=== PATIENT | female | born 1965 | race Caucasian/White ===

== ENCOUNTER 2018-11-24 10:16 | Emergency (ER) | payer OTHER ==
[2018-11-24 10:21] VITALS: BP 135/83; PULSE 83; TEMP 98; BMI 30.7
[2018-11-24] MEDS ORDERED: BACITRACIN 15 GM TUBE TOPICAL OINTMENT ONE (11:25)
--- NOTE | 2018-11-24 11:32 | PDOC ---
History of Present Illness - General Chief Complaint: Injury Stated Complaint: FALL / SKIN TEAR Time Seen by Provider: 11/24/18 10:26 History Source: Patient Exam Limitations: No Limitations Past History - Travel Traveled outside of the country in the last 30 days: No Close contact w/someone who was outside of country & ill: No - Past Medical History Allergies/Adverse Reactions: Allergies Allergy/AdvReac Type Severity Reaction Status Date / Time No Known Allergies Allergy Verified 11/24/18 10:21 Home Medications: Ambulatory Orders Mupirocin Ointment [Bactroban 2% Ointment -] 1 applic TP BID #1 tube 11/24/18 COPD: No Dementia: (PRE-DIABETIC) HTN: Yes - Psycho Social/Smoking Cessation Hx Smoking History: Never smoked Hx Alcohol Use: No Drug/Substance Use Hx: No Review of Systems - Review of Systems Able to Perform ROS?: Yes Comments:: 11/24/18 11:35 CONSTITUTIONAL: Absent: fever, chills, diaphoresis, generalized weakness, malaise, loss of appetite MUSCULOSKELETAL: Absent: myalgia, arthralgia, joint swelling SKIN: Present: Abrasion to left knee. Absent: rash, itching, pallor NEUROLOGIC: Absent: headache, focal weakness or paresthesias, dizziness, unsteady gait, seizure, mental status changes, bladder or bowel incontinence PSYCHIATRIC: Absent: anxiety, depression, suicidal or homicidal ideation, hallucinations. Is the patient limited Ukrainian proficient: No *Physical Exam - Vital Signs Last Vital Signs Temp Pulse Resp BP Pulse Ox 98.0 F 83 16 135/83 98 11/24/18 10:18 11/24/18 10:18 11/24/18 10:18 11/24/18 10:18 11/24/18 10:18 - Physical Exam Comments: 11/24/18 13:18 GENERAL: The patient is awake, alert, and fully oriented, in no acute distress. HEAD: Normal with no signs of trauma. EYES: Pupils equal, round and reactive to light, extraocular movements intact, sclera anicteric, conjunctiva clear. EXTREMITIES: Normal range of motion, no edema. NEUROLOGICAL: Normal speech, normal gait. PSYCH: Normal mood, normal affect. SKIN: Silver dollar sized abrasion with granulation tissue noted to the left knee. No induration or overlying erythema. No purulent drainage to suggest infection. Warm, Dry, normal turgor, no rashes or lesions noted. Medical Decision Making - Medical Decision Making 11/24/18 17:18 The patient is a 53-year-old female no past medical history who presents the ER today for evaluation of her abrasions to her left knee. She states that she fell down her stairs 10 days ago. She was seen at [facility] at the time of the initial injury and had negative x-rays of her knees. She was told to use bacitracin on the knees and was given oral clindamycin to prevent infection. 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 Denies fevers, chills, redness to the area, calf pain, numbness and tingliness and weakness to the affected extremities. A/P: Abrasions On exam silver dollar sized abrasion to the left anterior knee. There is granulation tissue forming. No erythema or purulent drainage to suggest infection. Will recommend patient continue to use mupirocin on the area No oral antibiotics are required at this time. Patient referred to wound care for further treatment options I discussed the physical exam findings, ancillary test results and final diagnoses with the patient. I answered all of the patient's questions. The patient was satisfied with the care received and felt comfortable with the discharge plan and treatment plan. The Patient agrees to follow up with the primary care physician/specialist within 24-72 hours. Return precautions were given. Discharge - Discharge Information Problems reviewed: Yes Clinical Impression/Diagnosis: Abrasion Condition: Good Disposition: HOME - Admission No - Additional Discharge Information Prescriptions: Mupirocin Ointment [Bactroban 2% Ointment -] 1 applic TP BID #1 tube - Follow up/Referral Referrals: Marie Bonilla MD [Primary Care Provider] - - Patient Discharge Instructions Patient Printed Discharge Instructions: DI for Abrasion Additional Instructions: You were evaluated for your abrasions today. They do not appear to be infected at this time. Please use the mupirocin twice a day to continue wound care. You are also given a referral for our wound care department. Please call the number listed. Call this week. Return to the ER for any new or worsening symptoms including fever, purulent discharge (pus), calf pain, or if you have any changes in your symptoms. Wound care: [phone] - Post Discharge Activity Work/Back to School Note: Back to Work
== END 2018-11-24 11:45 | disposition home or self-care (01) ==
LOC: JERFT 10:16
DX: T14.8XXA Other injury of unspecified body region, initial encounter (principal); W18.39XA Other fall on same level, initial encounter; Y93.89 Activity, other specified; Y92.89 Other specified places as the place of occurrence of the external cause; R73.03 Prediabetes; I10 Essential (primary) hypertension
CPT/HCPCS: 99281-25